=== PATIENT | male | born 1985 | race Caucasian/White ===

== ENCOUNTER → 2016-06-17 | Outpatient (CLI) | payer SELFPAY ==
[2016-04-14 02:05] VITALS: BP 174/82
[2016-06-17 16:26] LABS: BASOPHILS % (AUTO) 0.3 % (0.2-1.0); EOSINOPHILS # (AUTO) 0.1 x10^3/uL (0.0-0.2); EOSINOPHILS % (AUTO) 0.7 % (0.9-2.9); HEMATOCRIT 29.6 % (42.0-54.0); HEMOGLOBIN 9.4 g/dL (13.5-18.0); LYMPHOCYTES # (AUTO) 0.7 X10^3/uL (1.3-2.9); LYMPHOCYTES % (AUTO) 4.4 % (21.0-51.0); MEAN CORPUSCULAR HEMOGLOBIN 24.1 pg (27.0-34.0); MEAN CORPUSCULAR HGB CONC 31.8 g/dL (33.0-35.0); MEAN CORPUSCULAR VOLUME 75.8 fL (80.0-100.0); MEAN PLATELET VOLUME 8.3 fL (7.4-11.0); MONOCYTES % (AUTO) 6.3 % (0.0-13.0); NEUTROPHILS # (AUTO) 13.6 x10^3/uL (2.2-4.8); NEUTROPHILS % (AUTO) 88.3 % (42.0-75.0); PLATELET COUNT 505 X10^3/uL (150.0-450.0); RED BLOOD COUNT 3.91 X10^6/uL (4.7-6.0); RED CELL DISTRIBUTION WIDTH 16.5 % (11.6-16.5); WHITE BLOOD COUNT 15.4 X10^3/uL (3.6-10.0)
[2016-06-17 16:30] LABS: ALANINE AMINOTRANSFERASE 10 Units/L (12-78); ALBUMIN 2.9 g/dL (3.4-5.0); ALKALINE PHOSPHATASE 55 Units/L (46-116); AMYLASE 119 Units/L (25-115); ASPARTATE AMINO TRANSFERASE 15 Units/L (15-37); BLOOD UREA NITROGEN 12 mg/dL (7-18); CARBON DIOXIDE 27.2 mmol/L (21-32); CHLORIDE 99 mmol/L (98-107); CHOL/HDL RATIO 11.7 (0.0-5.0); CHOLESTEROL 187 mg/dL (0-200); COR NA(FOR HYPERGLY) 139 mmol/L (136-145); CREATININE 1.54 mg/dL (0.70-1.30); GLUCOSE 146 mg/dL (65-99); HDL CHOLESTEROL 16 mg/dL (40-60); LIPASE 338 Units/L (73-393); SODIUM 138 mmol/L (136-145); TOTAL PROTEIN 7.8 g/dL (6.4-8.2); TRIGLYCERIDES 303 mg/dL (0-150); eGFR BLACK RACES > 60 (>60); eGFR NON BLACK RACES 56 (>60)
[2016-06-17 17:09] LABS: ANISOCYTOSIS SLIGHT; MICROCYTOSIS SLIGHT; PLATELET MORPHOLOGY COMMENT NORMAL (NORMAL)
== END ==
LOC: LAB 15:44
PROVIDERS: ATTEND Internal Medicine
DX: K85.80 Other acute pancreatitis without necrosis or infection (principal)
CPT/HCPCS: 36415; 80048; 80061; 80076; 82150; 83690; 85025

== ENCOUNTER 2016-07-01 17:11 | Emergency (ER) | payer SELFPAY ==
[2016-07-01 17:17] VITALS: BMI 27.1
[2016-07-01] MEDS ORDERED: NS 1000 ML 1,000 ML ONE ×3 (17:19→19:01)
[2016-07-01] MEDS ORDERED: NS 1000 ML 1,000 ML IV ONE ×3 (17:26→19:09)
[2016-07-01] MEDS ORDERED: ZOFRAN INJ 4 MG VIAL ONE (17:28)
[2016-07-01] MEDS ORDERED: ZOFRAN INJ 4 MG VIAL IVP ONE (17:28)
[2016-07-01 17:56] LABS: BASOPHILS # (AUTO) 0.2 X10^3/uL (0.0-0.1); EOSINOPHILS # (AUTO) 0.1 x10^3/uL (0.0-0.2); EOSINOPHILS % (AUTO) 0.9 % (0.9-2.9); HEMATOCRIT 26.9 % (42.0-54.0); HEMOGLOBIN 8.3 g/dL (13.5-18.0); LYMPHOCYTES % (AUTO) 6.1 % (21.0-51.0); MEAN CORPUSCULAR VOLUME 74.1 fL (80.0-100.0); MEAN PLATELET VOLUME 8.7 fL (7.4-11.0); MONOCYTES # (AUTO) 0.8 x10^3/uL (0.3-0.8); MONOCYTES % (AUTO) 4.9 % (0.0-13.0); NEUTROPHILS # (AUTO) 14.4 x10^3/uL (2.2-4.8); NEUTROPHILS % (AUTO) 87.1 % (42.0-75.0); PLATELET COUNT 565 X10^3/uL (150.0-450.0); RED BLOOD COUNT 3.62 X10^6/uL (4.7-6.0); RED CELL DISTRIBUTION WIDTH 17.4 % (11.6-16.5); WHITE BLOOD COUNT 16.5 X10^3/uL (3.6-10.0)
[2016-07-01 18:07] LABS: ALANINE AMINOTRANSFERASE 12 Units/L (12-78); ALBUMIN 2.4 g/dL (3.4-5.0); ALKALINE PHOSPHATASE 62 Units/L (46-116); AMYLASE 110 Units/L (25-115); ASPARTATE AMINO TRANSFERASE 28 Units/L (15-37); BLOOD UREA NITROGEN 13 mg/dL (7-18); CALCIUM 9.2 mg/dL (8.5-10.1); CARBON DIOXIDE 26.7 mmol/L (21-32); CHLORIDE 96 mmol/L (98-107); COR CA(FOR HYPOALB) 10.5 mg/dL (8.5-10.1); COR NA(FOR HYPERGLY) 138 mmol/L (136-145); CREATININE 1.44 mg/dL (0.70-1.30); GLUCOSE 168 mg/dL (65-99); LIPASE 412 Units/L (73-393); SODIUM 136 mmol/L (136-145); TOTAL PROTEIN 7.3 g/dL (6.4-8.2); eGFR BLACK RACES > 60 (>60); eGFR NON BLACK RACES > 60 (>60)
[2016-07-01 18:21] LABS: HYPOCHROMASIA 1+; MICROCYTOSIS 1+; PLATELET MORPHOLOGY COMMENT NORMAL (NORMAL); POIKILOCYTOSIS 1+
--- NOTE | 2016-07-01 19:02 | RAD ---
Chest, one view Indication: Chest pain Comparison: 06/20/2015 Findings: The cardiac silhouette is unremarkable. The lungs are clear, without focal infiltrates, la rge effusion, or pneumothorax. The bony thorax is unremarkable. Impression: No acute cardiopulmonary disease. Reported By:
--- NOTE | 2016-07-01 20:00 | DR.GENAD ---
HPI - PCP Primary Care Physician: bob - HPI Comment HPI Comment: SEVERE PACREATITIS APRIL THIS YEAR STAY IN [facility] FOR WEEKS. HAVE DRAIN IN COMMON BILE DUCT. HAVE GALL STONE ALSO. WORKING WITH DR. HURTADO, GI AND DR. PORTILLO SURGEON. PATIENT IS CURRENTLY RUNNING FEVER AND VOMITING. HE GOT VERY WEAK TONIGHT. HYPOTENSIVE IN ED. - Complaint/Symptoms Chief Complaint Doctors Comments: INRESING WAKNESS SEVERAL DAYS, N/V TODAY AND INCRESING ABDOMINA PAIN. Chief Complaint:: patient has a hx of pancritis, and was shipped to [facility] [place]. he started hurting and vomiting this morning. - Nurses notes reviewed Nurses Notes Review: Yes - Source History Provided: Patient, Family Member - Mode of Arrival Mode of Arrival: Ambulatory - Timing Onset of Chief Complaint: 07/01/16 Came on: Gradually - Duration Duration: Constant Duration: Days - Severity Severity: Moderate PMH - PMH Past Medical History: Yes Past Medical History: Diabetes, GERD Past Surgical History: Yes Surgical History: Abdominal Surgery - Family History History of Family Medical Conditions: Yes Family Medical History: Diabetes Mellitus, Cancer, [place], Coronary Artery Disease, Heart Failure, Sudden Cardiac , Hypertension - Social History Does patient currently use any type of tobacco product: No Have you used tobacco products in the last 12 months: No Does any household member use tobacco: No Alcohol Use: None Do you use any recreational Drugs:: No Lives With: Family Lives Where: Home - infectious screening In the last 2 months have you had wt loss of >10#?: NO Have you had fever, night sweats or hemotysis?: No Have you traveled outside the country in the last 6 months?: No Isolation: Standard ROS - Review of Systems Constitutional: Weakness, Fatigue, Loss of Appetite. negative: Chills, Fever Eyes: No Symptoms Reported. negative: Eye Pain, Discharge ENTM: negative: Ear Pain, Nose Discharge, Nose Congestion, Throat Pain Respiratoy: Non-Productive Cough, Short of Breath, Wheezing. negative: Productive Cough, Hemoptysis Cardiovascular: Chest Pain, Edema (TRACE), Palpitations Gastrointestinal/Abdominal: Abdominal Pain, Nausea, Vomiting Genitourinary: Other (DECREASE URINE OUTPUT.). negative: Dysuria, Frequency, Hematuria Neurological: Weakness, Dizziness Musculoskeletal: Muscle Pain Integumentary: Change in Color, Dryness, Other (DRAINING FROM LT CHEST SITE OF RECENT CHEST TUBE.) Hematologic/Lymphatic: Anemia Endocrine: No Symptoms Reported All Other Systems: Reviewed and Negative PE - Vital Signs Vitals: Temperature 100.0 F Pulse Rate [Left Brachial] 72 Pulse Rate 115 Respiratory Rate 16 Blood Pressure [Left Arm] 121/68 Blood Pressure [Right Arm] 174/82 Blood Pressure 83/68 O2 Sat by Pulse Oximetry 98 - General Limitations: No Limitations General Appearance: Alert - Head Head Exam: Normal Inspection - Eyes Eye exam: Normal Appearance - ENT ENT Exam: Normal External Ear Exam External Ear Exam: Normal External Inspection TM/Canal Exam: Bilateral Normal Nose Exam: Normal Nose Exam Mouth Exam: Normal Inspection Throat Exam: Normal Inspection - Neck Neck Exam: Normal Inspection - Chest Chest Inspection: Symmetric Chest Wall Rise - Respiratory Respiratory Exam: Normal Lung Sounds Bilat Respiratory Exam: Bilateral Clear to Auscultation - Cardiovascular Cardiovascular Exam: Regular Rate, Normal Rhythm, Normal Heart Sounds - Abdominal Exam Abdominal Exam: Normal Bowel Sounds, Soft, Tenderness Abdominal Tenderness: Diffuse, Moderate - Extremities Extremities Exam: Edema (TRACE) - Back Back Exam: Normal Inspection - Neurologic Neurological Exam: Alert, Oriented X3 - Psychiatric Psychiatric Exam: Anxious - Skin Skin Exam: Dry MDM - Additional Information Additional Information Obtained From: Family - Differential Diagnosis Differential Diagnosis: HYPOTENSION, SEPSIS, PANCREATITIS, CHOLECYSTITIS, UTI Course - Treatment Treatment: HYPOTENSION RESPONDED TO FLUID RESUSCITATION. CT DONE AFTER FLUID RESUSCITATION. PATIENT WANTED TO GO TO [place]. HE FELT BETTER AND SIGN OUT AMA. - Education/Counseling Education/Counseling: Patient, Family, Education Educated On: Treatment, Diagnosis, Needs for Follow Up ROR - Labs Reviewed Laboratory Results Reviewed?: Yes Result Diagrams: 07/01/16 17:38 07/01/16 17:38 Laboratory: 07/01/16 17:45 Abdomen Gram Stain - Final WBC 16.5 X10^3/uL (3.6-10.0) H 07/01/16 17:38 RBC 3.62 X10^6/uL (4.7-6.0) L 07/01/16 17:38 Hgb 8.3 g/dL (13.5-18.0) L 07/01/16 17:38 Hct 26.9 % (42.0-54.0) L 07/01/16 17:38 MCV 74.1 fL (80.0-100.0) L 07/01/16 17:38 MCH 23.0 pg (27.0-34.0) L 07/01/16 17:38 MCHC 31.0 g/dL (33.0-35.0) L 07/01/16 17:38 RDW 17.4 % (11.6-16.5) H 07/01/16 17:38 Plt Count 565 X10^3/uL (150.0-450.0) H 07/01/16 17:38 Plt Count Comment Adequate (ADEQUATE) 07/01/16 17:38 MPV 8.7 fL (7.4-11.0) 07/01/16 17:38 Neut % 87.1 % (42.0-75.0) H 07/01/16 17: Lymph % 6.1 % (21.0-51.0) L 07/01/16 17:38 [place] % 4.9 % (0.0-13.0) 07/01/16 17:38 Eos % 0.9 % (0.9-2.9) 07/01/16 17:38 Baso % 1.0 % (0.2-1.0) 07/01/16 17:38 Neut # 14.4 x10^3/uL (2.2-4.8) H 07/01/16 17:38 Lymph # 1.0 X10^3/uL (1.3-2.9) L 07/01/16 17:38 [place] # 0.8 x10^3/uL (0.3-0.8) 07/01/16 17:38 Eos # 0.1 x10^3/uL (0.0-0.2) 07/01/16 17:38 Baso # 0.2 X10^3/uL (0.0-0.1) H 07/01/16 17:38 Absolute Nucleated RBC 0.0 /100WBC 07/01/16 17:38 Plt Morphology Comment Normal (NORMAL) 07/01/16 17:38 RBC Morphology Abnormal (NORMAL) 07/01/16 17:38 Hypochromasia 1+ A 07/01/16 17:38 Poikilocytosis 1+ A 07/01/16 17:38 Microcytosis 1+ A 07/01/16 17:38 Sodium 136 mmol/L (136-145) 07/01/16 17:38 Corrected Sodium 138 mmol/L (136-145) 07/01/16 17:38 Potassium 3.1 mmol/L (3.5-5.1) L 07/01/16 17:38 Chloride 96 mmol/L (98-107) L 07/01/16 17:38 Carbon Dioxide 26.7 mmol/L (21-32) 07/01/16 17:38 BUN 13 mg/dL (7-18) 07/01/16 17:38 Creatinine 1.44 mg/dL (0.70-1.30) H 07/01/16 17:38 Est GFR (MDRD) Af Amer > 60 (>60) 07/01/16 17:38 Est GFR (MDRD) Non-Af > 60 (>60) 07/01/16 17:38 Glucose 168 mg/dL (65-99) H 07/01/16 17:38 Lactic Acid 2.0 mmol/L (0.4-2.0) 07/01/16 17:38 Calcium 9.2 mg/dL (8.5-10.1) 07/01/16 17:38 Corrected Calcium 10.5 mg/dL (8.5-10.1) H 07/01/16 17:38 Total Bilirubin 0.60 mg/dL (0.2-1.0) 07/01/16 17:38 AST 28 Units/L (15-37) 07/01/16 17:38 ALT 12 Units/L (12-78) 07/01/16 17:38 Alkaline Phosphatase 62 Units/L (46-116) 07/01/16 17:38 C-Reactive Protein 144.30 mg/L (0-3.0) H 07/01/16 17:38 Total Protein 7.3 g/dL (6.4-8.2) 07/01/16 17:38 Albumin 2.4 g/dL (3.4-5.0) L 07/01/16 17:38 Globulin 4.9 g/dL (2.5-4.5) H 07/01/16 17:38 Albumin/Globulin Ratio 0.5 Ratio (1.1-2.1) L 07/01/16 17:38 Amylase 110 Units/L (25-115) 07/01/16 17:38 Lipase 412 Units/L (73-393) H 07/01/16 17:38 Specimen Type Clean catch urine 07/01/16 20:52 Urine Color Yellow (YELLOW) 07/01/16 20:52 Urine Appearance Hazy (CLEAR) 07/01/16 20:52 Urine pH 6.5 (5.0 - 8.0) 07/01/16 20:52 Ur Specific [place] 1.010 (1.000-1.030) 07/01/16 20:52 Urine Protein 3+ (NEGATIVE) 07/01/16 20:52 Urine Glucose (UA) Negative (NEGATIVE) 07/01/16 20:52 Urine Ketones 2+ (NEGATIVE) 07/01/16 20:52 Urine Occult Blood 1+ (NEGATIVE) 07/01/16 20:52 Urine Nitrite Negative (NEGATIVE) 07/01/16 20:52 Urine Bilirubin 1+ (NEGATIVE) 07/01/16 20:52 Urine Urobilinogen 2+ (NORMAL) 07/01/16 20:52 Ur Leukocyte Esterase 1+ (NEGATIVE) 07/01/16 20:52 Urine RBC 0-3 /HPF (NEGATIVE) 07/01/16 20:52 Urine WBC 6-10 /HPF (NEGATIVE) 07/01/16 20:52 Ur Squamous Epith Cells Negative /HPF (NEGATIVE) 07/01/16 20:52 Urine Bacteria Trace /HPF (NEGATIVE) 07/01/16 20:52 Urine Mucus Few /HPF (NEGATIVE) 07/01/16 20:52 Ur Culture Indicated? No/not indicated 07/01/16 20:52 - XRAY XRAY Interpreted by: Radiologist XRAY Findings: REPORT DISCUSS WITH PATIENT. - Diagnosis Discharge Problem: Pancreatic pseudocyst Pancreatitis Qualifiers: Chronicity: acute Pancreatitis type: unspecified pancreatitis type Acute pancreatitis complication: unspecified Qualified Code(s): K85.90 - Acute pancreatitis without necrosis or infection, unspecified Hypotension Qualifiers: Hypotension type: other hypotension type Qualified Code(s): I95.89 - Other hypotension - Discharge Plan Disposition: 07 AGAINST MEDICAL ADVICE Condition: Stable - Follow ups/Referrals Follow ups/Referrals: Viktor SOLANO [Primary Care Provider] - 3 days - Instructions Instructions: Acute Pancreatitis, [id number]
--- NOTE | 2016-07-01 20:49 | CT ---
STUDY: CT ABDOMEN AND PELVIS WITHOUT IV AND ORAL CONTRAST HISTORY: Abdominal pain, nausea, vomiting. Comparison: April 13, 2016. Technique: Multiple axial images of the abdomen and pelvis were obtained from the lung bases to the pubic symphysis without the administration of IV contrast. Findings: The visualized portions of the lung bases are unremarkable. CT abdomen: Since a prior examination there appears to have been placement of a biliary stent. There is blurring of the margins of the pancreas and peripancreatic inflammatory stranding. There is a lo w attenuation fluid collection within the body and tail of pancreas which measures approximately 10. 2 x 5.7 cm, most consistent with a pancreatic pseudocyst. Several locules of air are identified with in the pseudocyst. There appears to be some thickening of the gastric barrios immediately adjacent to the pseudocyst. The liver is normal appearance. The spleen appears enlarged. There is a small amount fluid posterior medial to the spleen. Both adrenal glands are normal in appearance. Both kidneys cruz ve a normal nonenhanced appearance. There is no evidence of hydronephrosis, nephrolithiasis, or julio ureteric fat stranding. Multiple nodules are identified throughout the peritoneal cavity, left mostl y along the mesentery and left fercho abdomen. There appears to be some thickening of the barrios of the stomach. The stomach is incompletely distend ed. The small bowel is normal in appearance, without evidence of bowel wall thickening or small gayla l obstruction. The terminal ileum and cecum are normal. The appendix is normal in appearance. Ther e is no evidence of periappendiceal fat stranding. The ascending, transverse and descending colon ar e within normal limits. CT pelvis: The sigmoid colon and the rectum are within normal limits. The urinary bladder is normal. No abnormal fluid collections are identified in the pelvis. There is no evidence of acute osseous abnormality. IMPRESSION: 1. Findings most consistent with acute pancreatitis with associated pancreatic pseudocyst. 2. Mild splenomegaly. Reported By:
[2016-07-01] MEDS ORDERED: NS 100 ML IV 100 ML IV ONE (20:53)
[2016-07-01] MEDS ORDERED: ZOSYN VIAL 3.375 GM IV ONE (20:54)
[2016-07-01 20:57] LABS: BILIRUBIN,URINE 1+ (NEGATIVE); BLOOD/HEMOGLOBIN,URINE 1+ (NEGATIVE); GLUCOSE, URINE NEGATIVE (NEGATIVE); KETONES,URINE 2+ (NEGATIVE); LEUKOCYTE ESTERASE ,URINE 1+ (NEGATIVE); NITRITES,URINE NEGATIVE (NEGATIVE); PH,URINE 6.5 (5.0 - 8.0); PROTEIN,URINE 3+ (NEGATIVE); UROBILINOGEN,URINE 2+ (NORMAL)
[2016-07-01 21:04] LABS: APPEARANCE,URINE HAZY (CLEAR); BACTERIA,URINE TRACE /HPF (NEGATIVE); COLOR,URINE YELLOW (YELLOW); MUCUS,URINE FEW /HPF (NEGATIVE); RBC,URINE 0-3 /HPF (NEGATIVE); SQUAMOUS EPITHELIAL CELL,UR NEGATIVE /HPF (NEGATIVE)
[2016-07-01] MEDS ORDERED: ZOSYN VIAL 3.375 GM 1.5 GM in NS 100 ML IV + SPIKE MINIBAG* 100 ML IV SCH (22:00)
[2016-07-01 22:15] VITALS: BP 121/68
== END 2016-07-01 22:25 | disposition left against medical advice (07) ==
LOC: ER 17:28
DX: K85.90 Acute pancreatitis without necrosis or infection, unspecified (principal); K86.3 Pseudocyst of pancreas; I95.89 Other hypotension
CPT/HCPCS: 36415; 71010; 74176; 80053; 81001; 82150; 83605; 83690; 85025; 86140; 87040; 87070; 87075; 87205; 93005; 93010; 96365; 96367; 96374; 96375; 99283; A4222; J2405; J2543

== ENCOUNTER → 2016-07-08 | Outpatient (CLI) | payer SELFPAY ==
[2016-07-01 22:15] VITALS: BP 121/68
--- NOTE | 2016-07-08 14:04 | RAD ---
HISTORY: Abdominal pain Study: Acute abdominal series Comparison: July 01, 2016 Findings: The trachea is midline. The cardiac silhouette is unremarkable. The lungs are clear without focal infiltrate or effusion. The bony thorax is unremarkable. Flat plate and upright evaluation of the abdomen demonstrates a normal bowel gas pattern. No pneumop eritoneum is identified. There is a biliary stent present.. No pathological soft tissue mass or huy cification can be observed. The bony structures are grossly intact. IMPRESSION: 1. No acute cardiopulmonary disease. 2. No evidence for acute abdominal pathology identified. Reported By:
== END ==
LOC: RAD 13:24
PROVIDERS: ATTEND Internal Medicine Gastroenterology
DX: R10.84 Generalized abdominal pain (principal)
CPT/HCPCS: 74022

== ENCOUNTER 2016-07-12 18:03 | Emergency (ER) | payer SELFPAY ==
[2016-07-12] MEDS ORDERED: NS 1000 ML 1,000 ML IV ONE ×3 (18:15→19:35)
[2016-07-12] MEDS ORDERED: NS 1000 ML 1,000 ML ONE ×3 (18:15→20:53)
[2016-07-12 18:22] VITALS: BMI 24.3
--- NOTE | 2016-07-12 19:06 | RAD ---
HISTORY: Low blood pressure. Study: Chest one view Comparison: July 08, 2016. Findings: The trachea is midline. The cardiac silhouette is unremarkable. There are low lung volumes. The latisha gs are clear without focal infiltrate or effusion. The bony thorax is unremarkable. IMPRESSION: 1. No acute cardiopulmonary disease. Reported By:
[2016-07-12 19:33] LABS: BASOPHILS # (AUTO) 0.1 X10^3/uL (0.0-0.1); BASOPHILS % (AUTO) 0.2 % (0.2-1.0); EOSINOPHILS % (AUTO) 0.1 % (0.9-2.9); HEMATOCRIT 25.6 % (42.0-54.0); HEMOGLOBIN 7.7 g/dL (13.5-18.0); LYMPHOCYTES # (AUTO) 0.4 X10^3/uL (1.3-2.9); LYMPHOCYTES % (AUTO) 1.5 % (21.0-51.0); MEAN CORPUSCULAR HEMOGLOBIN 22.9 pg (27.0-34.0); MEAN CORPUSCULAR HGB CONC 30.2 g/dL (33.0-35.0); MEAN CORPUSCULAR VOLUME 75.8 fL (80.0-100.0); MEAN PLATELET VOLUME 8.9 fL (7.4-11.0); MONOCYTES # (AUTO) 0.6 x10^3/uL (0.3-0.8); MONOCYTES % (AUTO) 2.3 % (0.0-13.0); NEUTROPHILS # (AUTO) 24.5 x10^3/uL (2.2-4.8); NEUTROPHILS % (AUTO) 95.9 % (42.0-75.0); PLATELET COUNT 389 X10^3/uL (150.0-450.0); RED BLOOD COUNT 3.38 X10^6/uL (4.7-6.0); RED CELL DISTRIBUTION WIDTH 17.8 % (11.6-16.5)
[2016-07-12 19:35] LABS: WHITE BLOOD COUNT 25.6 X10^3/uL (3.6-10.0)
[2016-07-12 19:38] LABS: B-TYPE NATRIURETIC PEPTIDE 25.9 pg/mL (0-79)
[2016-07-12 19:40] LABS: ALANINE AMINOTRANSFERASE 11 Units/L (12-78); ALBUMIN 1.6 g/dL (3.4-5.0); ALKALINE PHOSPHATASE 97 Units/L (46-116); AMYLASE 90 Units/L (25-115); ANISOCYTOSIS SLIGHT; ASPARTATE AMINO TRANSFERASE 36 Units/L (15-37); BAND NEUTROPHILS % 16 % (0-10); BLOOD UREA NITROGEN 14 mg/dL (7-18); CALCIUM 7.8 mg/dL (8.5-10.1); CHLORIDE 99 mmol/L (98-107); CKMB % 0.4 % (<4); COR CA(FOR HYPOALB) 9.7 mg/dL (8.5-10.1); COR NA(FOR HYPERGLY) 137 mmol/L (136-145); CREATINE KINASE 238 Units/L (39-308); CREATINE KINASE MB < 1.0 ng/mL (0-4.0); CREATININE 2.08 mg/dL (0.70-1.30); GLUCOSE 113 mg/dL (65-99); HYPOCHROMASIA 1+; LIPASE 266 Units/L (73-393); PLATELET MORPHOLOGY COMMENT NORMAL (NORMAL); SODIUM 137 mmol/L (136-145); TOTAL PROTEIN 5.2 g/dL (6.4-8.2); TROPONIN I < 0.02 ng/mL (0-1.5); eGFR BLACK RACES 48 (>60); eGFR NON BLACK RACES 40 (>60)
[2016-07-12 19:41] LABS: MICROCYTOSIS SLIGHT
[2016-07-12 19:44] LABS: CARBON DIOXIDE 13.8 mmol/L (21-32)
[2016-07-12] MEDS ORDERED: DOPAMINE IV PREMIX 400 MG 400 MG/250 ML BAG IV ONE (19:48)
[2016-07-12] MEDS ORDERED: D5W 250 ML IV 250 ML IV ONE (19:53)
[2016-07-12] MEDS ORDERED: LEVOPHED INJ ONE (19:53)
[2016-07-12] MEDS ORDERED: LEVOPHED INJ 8 MG in D5W 250 ML IV 242 ML IV PRN (19:58)
[2016-07-12] MEDS ORDERED: NS + KCL 20 MEQ/L 1,000 ML IV ONE (20:12)
[2016-07-12] MEDS ORDERED: ROCEPHIN VIAL 1 GM 1 GM in NS 50 ML IV + SPIKE MINIBAG* 50 ML IV ONE (20:23)
[2016-07-12] MEDS ORDERED: ROCEPHIN VIAL 1 GM ONE (20:49)
[2016-07-12] MEDS ORDERED: NS 50 ML IV + SPIKE MINIBAG* 50 ML IV ONE (20:50)
[2016-07-12] MEDS ORDERED: NS + KCL 20 MEQ/L 1,000 ML IV SCH (21:00)
[2016-07-12] MEDS ORDERED: VANCOMYCIN HCL 1 GM VIAL IV ONE (21:47)
[2016-07-12] MEDS ORDERED: LEVAQUIN PREMIX IV 750 MG 750 MG/150 ML BAG IV ONE (21:54)
[2016-07-12] MEDS ORDERED: VANCOMYCIN 1 GM PREMIX (ADDVANTAGE) 250 ML IV ONE (21:55)
[2016-07-12] MEDS ORDERED: ZOSYN VIAL 3.375 GM 1.5 GM in NS 100 ML IV + SPIKE MINIBAG* 100 ML IV SCH (22:00)
--- NOTE | 2016-07-12 22:05 | CT ---
STUDY: CT ABDOMEN WITHOUT IV AND ORAL CONTRAST HISTORY: Hypotension. Abdominal pains. Recent pancreas surgery. Comparison: CT abdomen and pelvis from April 13, 2016. Technique: Multiple axial images of the abdomen were obtained from the lung bases to the iliac douglas ts without the administration of IV contrast. Findings: There is prominence of the central bronchial pulmonary markings in both lower lobes, most concerning for bronchitis. There is beam hardening and streak artifact across the abdomen. CT abdomen: The liver, gallbladder, spleen, kidneys, and adrenal glands are normal in appearance. Mu ltiple mesenteric lymph nodes are identified. There appears to be a biliary stent in place extending from the common bile duct into the pancreatic head and duodenum. There is abnormal inflammatory str anding around the pancreas. There is an abnormal complex fluid collection centered at the tail of th e pancreas which measures approximately 7.4 (AP) x 10.5 (TR) x 7.7 (SI) cm. The stomach is normal in appearance. Visualized portions of the small bowel and colon are unremarkab le. There is no evidence of bowel obstruction. There is no evidence of acute osseous abnormality. IMPRESSION: 1. Postsurgical change status post placement of biliary stent. 2. Findings most concerning for pancreatitis with pancreatic pseudocyst centered in the pancreatic tail. 3. Recommend followup CT examination as clinically warranted performed with oral and IV contrast. Reported By:
--- NOTE | 2016-07-12 22:48 | DR.GENAD ---
HPI - PCP Primary Care Physician: [email or web address] - HPI Comment HPI Comment: PATIENT HERE VIA EMS WITH SBP OF 50. PATIENT IS TACHYCARDIC, DIAPHORETIC AND WEAK. HE IS COMPLAINING OF ABDOMINAL AND CHEST PAIN. HAD PACREATITIS IN APRIL. ERCP DONE. HE ALSO HAVE INDWELLING GALL STONE. ABDOMINAL PAIN SINCE DISCHARGE FROM HOSPITAL. GOT WORSE THIS WEEK. ALSO STARTED RUNNING FEVER THE SAME TIME. HE JUST DONT FEEL GOOD TODAY. - Complaint/Symptoms Chief Complaint Doctors Comments: HYPOTENSION, WEAKNESS, DIAPHORESIS. Chief Complaint:: [facility] BRINGS IN PT. WITH A C/O OF HYPOTENSION. 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 UPON ARRIVAL, PT. IS ALERT AND ORIENTED BUT PALE, DIAPHORETIC, TACHYCARDIC, AND TACHYPNEIC. NO RADIAL PULSES WERE PALPABLE UPON ARRIVAL NOR WAS A BLOOD PRESSURE. PT. WAS PLACED IN [place] POSITION WITH 2 NS BOLUSES INFUSING. PT. C/O ABDOMINAL PAIN AND NAUSEA. - Nurses notes reviewed Nurses Notes Review: Yes - Source History Provided: Patient, Family Member, EMS - Mode of Arrival Mode of Arrival: EMS - Timing Onset of Chief Complaint: 07/12/16 Came on: Gradually - Duration Duration: Constant Duration: Days - Severity Severity: Moderate PMH - PMH Past Medical History: Yes Past Medical History: Diabetes, GERD Past Surgical History: Yes Surgical History: Abdominal Surgery Past Surgical History Comment: HEAD OF PANCREAS WAS REMOVED - Family History History of Family Medical Conditions: Yes Family Medical History: Diabetes Mellitus, Cancer, [place], Coronary Artery Disease, Heart Failure, Sudden Cardiac , Hypertension - Social History Does patient currently use any type of tobacco product: No Have you used tobacco products in the last 12 months: No Type of Tobacco Use: None Does any household member use tobacco: No Alcohol Use: None Do you use any recreational Drugs:: No Lives With: Family Lives Where: Home - infectious screening In the last 2 months have you had wt loss of >10#?: NO Have you had fever, night sweats or hemotysis?: No Have you traveled outside the country in the last 6 months?: No Isolation: Standard ROS - Review of Systems Constitutional: Chills, Diaphoresis, Fever, Malaise, Weakness, Fatigue, Loss of Appetite Eyes: No Symptoms Reported. negative: Eye Pain, Discharge ENTM: No Symptoms Reported. negative: Ear Pain, Nose Discharge, Nose Congestion , Throat Pain Respiratoy: Productive Cough, Short of Breath, Wheezing. negative: Hemoptysis Cardiovascular: Chest Pain, Palpitations Gastrointestinal/Abdominal: Abdominal Pain, Nausea. negative: Constipation, Diarrhea Genitourinary: No Symptoms Reported. negative: Dysuria, Frequency, Hematuria Neurological: Anxiety, Headache, Weakness, Dizziness Musculoskeletal: Back Pain, Muscle Pain Integumentary: Change in Color, Dryness Hematologic/Lymphatic: Anemia Endocrine: Flushing Psychiatric: Anxiety All Other Systems: Reviewed and Negative PE - Vital Signs Vitals: Temperature 98.9 F Pulse Rate [Apical] 123 Pulse Rate 142 Respiratory Rate 16 Blood Pressure [Left Arm] 106/57 Blood Pressure [Right Arm] 120/54 Blood Pressure 109/49 O2 Sat by Pulse Oximetry 100 - General Limitations: No Limitations General Appearance: Alert, In Distress - Head Head Exam: Normal Inspection - Eyes Eye exam: Normal Appearance. negative: Scleral Icterus, Conjunctival Injection - ENT ENT Exam: Normal Oropharynx, Normal External Ear Exam, TM's Normal Bilaterally External Ear Exam: Normal External Inspection TM/Canal Exam: Bilateral Normal Nose Exam: Normal Nose Exam Mouth Exam: Normal Inspection Throat Exam: Normal Inspection - Neck Neck Exam: Trachea Midline. negative: Tenderness, Meningismus - Chest Chest Inspection: Symmetric Chest Wall Rise - Respiratory Respiratory Exam: Respiratory Distress. negative: Chest Wall Tenderness Respiratory Exam: Bilateral Rhonchi, Upper Rhonchi, Lower Rhonchi - Cardiovascular Cardiovascular Exam: Normal Rhythm, Tachycardia, Normal Heart Sounds - Abdominal Exam Abdominal Exam: Normal Bowel Sounds, Soft, Tenderness Abdominal Tenderness: Diffuse, Moderate - Extremities Extremities Exam: Normal Inspection - Back Back Exam: Paraspinal Tenderness - Neurologic Neurological Exam: Alert, Oriented X3, CN II-XII Intact, Reflexes Normal. negative: Motor Sensory Deficit - Psychiatric Psychiatric Exam: Anxious - Skin Skin Exam: Dry MDM - Additional Information Additional Information Obtained From: Family - Differential Diagnosis Differential Diagnosis: SEPSIS, HYPOTENSION, ABDOMINAL PAIN, RECENT PANCREATITIS Course - Treatment Treatment: SEE ORDERS, LEFT FEMORAL LINE PLACE IN ED BY DR. GRAVES, SURGEON. - Consultation Consultation Comments: DISCUSS PATIENT WITH ED JEANA GAO, TYE PATIENT DISCUSS WITH HUSPITALIST. DISCUSS PATIRNT WITH [employer] [facility] AT [facility]. HE ACCEPTED PATIENT FOR TRANSFER. SURGERY CONSULT FOR CENTRAL LINE PLACEMENT. FEMORAL LINE PLACE IN ED SURGEON. - Education/Counseling Education/Counseling: Patient, Family, Education Educated On: Treatment, Diagnosis ROR - Labs Reviewed Laboratory Results Reviewed?: Yes Result Diagrams: 07/12/16 19:10 07/12/16 19:10 Laboratory: WBC 25.6 X10^3/uL (3.6-10.0) H* 07/12/16 19:10 RBC 3.38 X10^6/uL (4.7-6.0) L 07/12/16 19:10 Hgb 7.7 g/dL (13.5-18.0) L 07/12/16 19:10 Hct 25.6 % (42.0-54.0) L 07/12/16 19:10 MCV 75.8 fL (80.0-100.0) L 07/12/16 19:10 MCH 22.9 pg (27.0-34.0) L 07/12/16 19:10 MCHC 30.2 g/dL (33.0-35.0) L 07/12/16 19:10 RDW 17.8 % (11.6-16.5) H 07/12/16 19:10 Plt Count 389 X10^3/uL (150.0-450.0) 07/12/16 19:10 Plt Count Comment Adequate (ADEQUATE) 07/12/16 19:10 MPV 8.9 fL (7.4-11.0) 07/12/16 19:10 Neut % 95.9 % (42.0-75.0) H 07/12/16 19:10 Lymph % 1.5 % (21.0-51.0) L 07/12/16 19:10 [place] % 2.3 % (0.0-13.0) 07/12/16 19:10 Eos % 0.1 % (0.9-2.9) L 07/12/16 19:10 Baso % 0.2 % (0.2-1.0) 07/12/16 19:10 Neut # 24.5 x10^3/uL (2.2-4.8) H 07/12/16 19:10 Lymph # 0.4 X10^3/uL (1.3-2.9) L 07/12/16 19:10 [place] # 0.6 x10^3/uL (0.3-0.8) 07/12/16 19:10 Eos # 0.0 x10^3/uL (0.0-0.2) 07/12/16 19:10 Baso # 0.1 X10^3/uL (0.0-0.1) 07/12/16 19:10 Absolute Nucleated RBC 0.1 /100WBC 07/12/16 19:10 Total Counted 100 07/12/16 19:10 Neutrophils % (Manual) 78 % (39-76) H 07/12/16 19:10 Band Neutrophils % 16 % (0-10) H 07/12/16 19:10 Lymphocytes % (Manual) 5 % (13-43) L 07/12/16 19:10 Monocytes % (Manual) 1 % (4-9) L 07/12/16 19:10 Plt Morphology Comment Normal (NORMAL) 07/12/16 19:10 RBC Morphology Abnormal (NORMAL) 07/12/16 19:10 Hypochromasia 1+ A 07/12/16 19:10 Anisocytosis Slight A 07/12/16 19:10 Microcytosis Slight A 07/12/16 19:10 Sample Site L rad 07/12/16 22:08 ABG pH 7.340 (7.35-7.45) L 07/12/16 22:08 ABG pCO2 24.0 mmHg (35.0-45.0) L 07/12/16 22:08 ABG pO2 80.0 mmHg (80.0-100.0) 07/12/16 22:08 ABG HCO3 12.9 mmol/L (22-26) L* 07/12/16 22:08 ABG O2 Saturation 95.0 % (90-100) 07/12/16 22:08 ABG Base Excess -11.1 mmol/L (-2.0-2.0) L 07/12/16 22:08 Sid Test Pos 07/12/16 22:08 A-a Gradient 90.0 mmHg 07/12/16 22:08 FiO2 28.000 07/12/16 22:08 Blood Gas Comments Shayna well, afh 07/12/16 22:08 Sodium 137 mmol/L (136-145) 07/12/16 19:10 Corrected Sodium 137 mmol/L (136-145) 07/12/16 19:10 Potassium 3.1 mmol/L (3.5-5.1) L 07/12/16 19:10 Chloride 99 mmol/L (98-107) 07/12/16 19:10 Carbon Dioxide 13.8 mmol/L (21-32) L* 07/12/16 19:10 BUN 14 mg/dL (7-18) 07/12/16 19:10 Creatinine 2.08 mg/dL (0.70-1.30) H 07/12/16 19:10 Est GFR (MDRD) Af Amer 48 (>60) L 07/12/16 19:10 Est GFR (MDRD) Non-Af 40 (>60) L 07/12/16 19:10 Glucose 113 mg/dL (65-99) H 07/12/16 19:10 Lactic Acid 6.8 mmol/L (0.4-2.0) H 07/12/16 20:59 Calcium 7.8 mg/dL (8.5-10.1) L 07/12/16 19:10 Corrected Calcium 9.7 mg/dL (8.5-10.1) 07/12/16 19:10 Total Bilirubin 0.60 mg/dL (0.2-1.0) 07/12/16 19:10 AST 36 Units/L (15-37) 07/12/16 19:10 ALT 11 Units/L (12-78) L 07/12/16 19:10 Alkaline Phosphatase 97 Units/L (46-116) 07/12/16 19:10 Creatine Kinase 238 Units/L (39-308) 07/12/16 19:10 CK-MB (CK-2) < 1.0 ng/mL (0-4.0) 07/12/16 19:10 CK/CKMB % Calc 0.4 % (<4) 07/12/16 19:10 Troponin I < 0.02 ng/mL (0-1.5) 07/12/16 19:10 B-Natriuretic Peptide 25.9 pg/mL (0-79) 07/12/16 19:10 Total Protein 5.2 g/dL (6.4-8.2) L 07/12/16 19:10 Albumin 1.6 g/dL (3.4-5.0) L 07/12/16 19:10 Globulin 3.6 g/dL (2.5-4.5) 07/12/16 19:10 Albumin/Globulin Ratio 0.4 Ratio (1.1-2.1) L 07/12/16 19:10 Amylase 90 Units/L (25-115) 07/12/16 19:10 Lipase 266 Units/L (73-393) 07/12/16 19:10 Specimen Type Clean catch urine 07/13/16 01:45 Urine Color Yellow (YELLOW) 07/13/16 01:45 Urine Appearance Clear (CLEAR) 07/13/16 01:45 Urine pH 6.0 (5.0 - 8.0) 07/13/16 01:45 Ur Specific [place] 1.015 (1.000-1.030) 07/13/16 01:45 Urine Protein 3+ (NEGATIVE) 07/13/16 01:45 Urine Glucose (UA) Negative (NEGATIVE) 07/13/16 01:45 Urine Ketones 1+ (NEGATIVE) 07/13/16 01:45 Urine Occult Blood 5+ (NEGATIVE) 07/13/16 01:45 Urine Nitrite Negative (NEGATIVE) 07/13/16 01:45 Urine Bilirubin Negative (NEGATIVE) 07/13/16 01:45 Urine Urobilinogen Normal (NORMAL) 07/13/16 01:45 Ur Leukocyte Esterase Negative (NEGATIVE) 07/13/16 01:45 Urine RBC 0-3 /HPF (NEGATIVE) 07/13/16 01:45 Urine WBC 2-4 /HPF (NEGATIVE) 07/13/16 01:45 Ur Squamous Epith Cells Rare /HPF (NEGATIVE) 07/13/16 01:45 Urine Bacteria 1+ /HPF (NEGATIVE) 07/13/16 01:45 Hyaline Casts Few /LPF (NEGATIVE) 07/13/16 01:45 Granular Casts Few /LPF (NEGATIVE) 07/13/16 01:45 Ur Culture Indicated? No/not indicated 07/13/16 01:45 - XRAY XRAY Interpreted by: Radiologist XRAY Findings: REPORT DISCUSS WITH PATIENT. - EKG Rhythm: ST (EKG NOTED) - Diagnosis Discharge Problem: Sepsis, Pancreatic pseudocyst, Abdominal pain - Discharge Plan Disposition: 02 XFER SHT-TRM HOSP Condition: Stable - Follow ups/Referrals Follow ups/Referrals: Viktor SOLANO [Primary Care Provider] - 3 days - Instructions
[2016-07-12] MEDS ORDERED: TYLENOL 500 MG TAB EXTRA STRENGTH PO ONE (22:53)
[2016-07-12] MEDS ORDERED: TYLENOL 500 MG TAB EXTRA STRENGTH ONE (22:54)
[2016-07-13 00:10] LABS: ABG BASE EXCESS -11.1 mmol/L (-2.0-2.0)
[2016-07-13 00:11] LABS: ABG ALLEN TEST POS; ABG HCO3 12.9 mmol/L (22-26)
[2016-07-13] MEDS ORDERED: LEVAQUIN PREMIX IV 750 MG 750 MG/150 ML BAG IV ONE (00:56)
--- NOTE | 2016-07-13 00:57 | RAD ---
AP abdomen Indication: Right femoral CVL placement Comparison: CT abdomen 07/12/2016 Findings: Left femoral venous catheter appears appropriately positioned. The bowel gas pattern is un remarkable. Impression: Satisfactory left femoral CVL. Reported By:
[2016-07-13 01:30] VITALS: BP 106/57
[2016-07-13] MEDS ORDERED: D5W 250 ML IV 250 ML IV ONE (02:01)
[2016-07-13 02:44] LABS: BILIRUBIN,URINE NEGATIVE (NEGATIVE); BLOOD/HEMOGLOBIN,URINE 5+ (NEGATIVE); GLUCOSE, URINE NEGATIVE (NEGATIVE); KETONES,URINE 1+ (NEGATIVE); LEUKOCYTE ESTERASE ,URINE NEGATIVE (NEGATIVE); NITRITES,URINE NEGATIVE (NEGATIVE); PROTEIN,URINE 3+ (NEGATIVE); UROBILINOGEN,URINE NORMAL (NORMAL)
[2016-07-13 02:56] LABS: APPEARANCE,URINE CLEAR (CLEAR); BACTERIA,URINE 1+ /HPF (NEGATIVE); COLOR,URINE YELLOW (YELLOW); GRANULAR CASTS,URINE FEW /LPF (NEGATIVE); HYALINE CASTS, URINE FEW /LPF (NEGATIVE); RBC,URINE 0-3 /HPF (NEGATIVE); SQUAMOUS EPITHELIAL CELL,UR RARE /HPF (NEGATIVE)
== END 2016-07-13 02:00 | disposition short-term general hospital (02) ==
LOC: ER 18:03
DX: A41.51 Sepsis due to Escherichia coli [E. coli] (principal); K86.3 Pseudocyst of pancreas; R10.84 Generalized abdominal pain
CPT/HCPCS: 36415; 36556; 36600; 51702; 71010; 74000; 74150; 80053; 81001; 82150; 82550; 82553; 82803; 83605; 83690; 83880; 84484; 85025; 87040; 87077; 87186; 93005; 93010; 93041; 96365; 96367; 96374; 96375; 99284; 99291; 99292; A4222; J0696; J1265; J1956; J3370

== ENCOUNTER → 2016-08-07 | Outpatient (CLI) | payer SELFPAY ==
[2016-07-13 01:30] VITALS: BP 106/57
[2016-08-07 14:09] LABS: ALANINE AMINOTRANSFERASE 10 Units/L (12-78); ALBUMIN 2.1 g/dL (3.4-5.0); ALKALINE PHOSPHATASE 96 Units/L (46-116); ASPARTATE AMINO TRANSFERASE 22 Units/L (15-37); BLOOD UREA NITROGEN 8 mg/dL (7-18); CALCIUM 8.6 mg/dL (8.5-10.1); CARBON DIOXIDE 24.2 mmol/L (21-32); CHLORIDE 101 mmol/L (98-107); COR CA(FOR HYPOALB) 10.1 mg/dL (8.5-10.1); COR NA(FOR HYPERGLY) 138 mmol/L (136-145); CREATININE 1.11 mg/dL (0.70-1.30); GLUCOSE 181 mg/dL (65-99); SODIUM 136 mmol/L (136-145); TOTAL PROTEIN 6.8 g/dL (6.4-8.2); eGFR BLACK RACES > 60 (>60); eGFR NON BLACK RACES > 60 (>60)
[2016-08-07 14:24] LABS: BASOPHILS # (AUTO) 0.1 X10^3/uL (0.0-0.1); BASOPHILS % (AUTO) 0.7 % (0.2-1.0); EOSINOPHILS # (AUTO) 0.1 x10^3/uL (0.0-0.2); EOSINOPHILS % (AUTO) 0.6 % (0.9-2.9); HEMOGLOBIN 7.8 g/dL (13.5-18.0); LYMPHOCYTES % (AUTO) 11.2 % (21.0-51.0); MEAN CORPUSCULAR HEMOGLOBIN 24.1 pg (27.0-34.0); MEAN CORPUSCULAR HGB CONC 31.1 g/dL (33.0-35.0); MEAN CORPUSCULAR VOLUME 77.4 fL (80.0-100.0); MEAN PLATELET VOLUME 9.6 fL (7.4-11.0); MONOCYTES # (AUTO) 0.8 x10^3/uL (0.3-0.8); MONOCYTES % (AUTO) 4.5 % (0.0-13.0); NEUTROPHILS # (AUTO) 15.1 x10^3/uL (2.2-4.8); PLATELET COUNT 603 X10^3/uL (150.0-450.0); RED BLOOD COUNT 3.23 X10^6/uL (4.7-6.0); RED CELL DISTRIBUTION WIDTH 20.4 % (11.6-16.5); WHITE BLOOD COUNT 18.3 X10^3/uL (3.6-10.0)
[2016-08-07 14:41] LABS: ANISOCYTOSIS 1+; PLATELET MORPHOLOGY COMMENT NORMAL (NORMAL)
== END | disposition home or self-care (01) | DRG 440 ==
LOC: LAB 13:05
PROVIDERS: ATTEND Internal Medicine Gastroenterology
DX: K85.80 Other acute pancreatitis without necrosis or infection (principal); K80.80 Other cholelithiasis without obstruction
CPT/HCPCS: 36415; 80053; 85025; 85610

== ENCOUNTER 2016-08-13 17:08 | Emergency (ER) | payer SELFPAY ==
[2016-08-13 17:11] VITALS: BP 125/60; BMI 24.5
--- NOTE | 2016-08-13 19:14 | DR.GENAD ---
HPI - PCP Primary Care Physician: [email or web address] - Complaint/Symptoms Chief Complaint Doctors Comments: "pancreas drain has stopped draining" Chief Complaint:: PATIENT MOTHER STATED THAT HIS DRAIN TUBE HAS NOT BEEN DRAINING FRO THE LAST 2-3 DAYS. PATIENT ALSO STATED THAT HE HAS BEEN NAUSEOUS TODAY BUT HAS NOT VOMITED. - Nurses notes reviewed Nurses Notes Review: Yes - Source History Provided: Patient, Family Member - Mode of Arrival Mode of Arrival: Wheelchair - Timing Onset of Chief Complaint: 08/10/16 Came on: Gradually - Severity Severity: None - Associated Signs and Symptoms Associated Signs and Symptoms: none PMH - PMH Past Medical History: Yes Past Medical History: Diabetes, GERD Past Surgical History: Yes Surgical History: Abdominal Surgery - Family History History of Family Medical Conditions: Yes Family Medical History: Diabetes Mellitus, Cancer, [place], Coronary Artery Disease, Heart Failure, Sudden Cardiac , Hypertension - Social History Does patient currently use any type of tobacco product: No Have you used tobacco products in the last 12 months: No Type of Tobacco Use: None Does any household member use tobacco: No Alcohol Use: None Do you use any recreational Drugs:: No Lives With: Family Lives Where: Home - infectious screening In the last 2 months have you had wt loss of >10#?: NO Have you had fever, night sweats or hemotysis?: No Have you traveled outside the country in the last 6 months?: No Isolation: Standard ROS - Review of Systems Constitutional: No Symptoms Reported Eyes: No Symptoms Reported ENTM: No Symptoms Reported Respiratoy: No Symptoms Reported Cardiovascular: No Symptoms Reported Gastrointestinal/Abdominal: No Symptoms Reported, Diarrhea, Other (severe pancreatitis requiring external drain ) Genitourinary: No Symptoms Reported Neurological: No Symptoms Reported Musculoskeletal: No Symptoms Reported Integumentary: No Symptoms Reported Hematologic/Lymphatic: No Symptoms Reported Endocrine: No Symptoms Reported Psychiatric: No Symptoms Reported All Other Systems: Reviewed and Negative PE - Vital Signs Vitals: Temperature 97.8 F Pulse Rate 99 Respiratory Rate 20 Blood Pressure [Left Arm] 106/57 Blood Pressure [Right Arm] 120/54 Blood Pressure 125/60 O2 Sat by Pulse Oximetry 99 - General Limitations: No Limitations General Appearance: Alert, In No Apparent Distress - Head Head Exam: Normal Inspection - Eyes Eye exam: Normal Appearance - ENT ENT Exam: Normal Exam External Ear Exam: Normal External Inspection Throat Exam: Normal Inspection - Neck Neck Exam: Normal Inspection, Full ROM, Trachea Midline - Chest Chest Inspection: Normal Inspection - Respiratory Respiratory Exam: Normal Lung Sounds Bilat - Cardiovascular Cardiovascular Exam: Regular Rate, Normal Rhythm, Normal Heart Sounds - Abdominal Exam Abdominal Exam: Normal Inspection, Normal Bowel Sounds, Soft - Extremities Extremities Exam: Normal Inspection - Back Back Exam: Normal Inspection - Neurologic Neurological Exam: Alert, Oriented X3, CN II-XII Intact - Psychiatric Psychiatric Exam: Depressed - Skin Skin Exam: Warm - Diagnosis Discharge Problem: Pancreatitis - Discharge Plan Disposition: HOME, SELF-CARE Condition: Stable - Follow ups/Referrals Follow ups/Referrals: Viktor SOLANO [Primary Care Provider] - 3 days - Instructions Instructions: Low-Fat Diet for Pancreatitis or Gallbladder Conditions Additional Notes - Additional Notes Additional Notes: Dysfunctional pancreatic drain. Pt is o/w stable. He will go back to [place] and see the interventional radiologist that put the drain in.
== END 2016-08-13 19:59 | disposition home or self-care (01) ==
LOC: ER 17:14
DX: K85.80 Other acute pancreatitis without necrosis or infection (principal)
CPT/HCPCS: 99281; 99282

== ENCOUNTER → 2017-04-19 | Outpatient (CLI) | payer SELFPAY ==
[2017-04-19 12:12] LABS: BASOPHILS # (AUTO) 0.1 X10^3/uL (0.0-0.1); BASOPHILS % (AUTO) 0.5 % (0.2-1.0); EOSINOPHILS # (AUTO) 0.1 x10^3/uL (0.0-0.2); HEMATOCRIT 34.7 % (42.0-54.0); HEMOGLOBIN 11.3 g/dL (13.5-18.0); LYMPHOCYTES # (AUTO) 0.7 X10^3/uL (1.3-2.9); LYMPHOCYTES % (AUTO) 6.7 % (21.0-51.0); MEAN CORPUSCULAR HEMOGLOBIN 24.1 pg (27.0-34.0); MEAN CORPUSCULAR HGB CONC 32.6 g/dL (33.0-35.0); MEAN CORPUSCULAR VOLUME 73.8 fL (80.0-100.0); MEAN PLATELET VOLUME 8.5 fL (7.4-11.0); MONOCYTES # (AUTO) 0.7 x10^3/uL (0.3-0.8); MONOCYTES % (AUTO) 6.5 % (0.0-13.0); NEUTROPHILS # (AUTO) 8.7 x10^3/uL (2.2-4.8); NEUTROPHILS % (AUTO) 85.3 % (42.0-75.0); PLATELET COUNT 259 X10^3/uL (150.0-450.0); RED CELL DISTRIBUTION WIDTH 16.5 % (11.6-16.5); WHITE BLOOD COUNT 10.2 X10^3/uL (3.6-10.0)
[2017-04-19 12:28] LABS: ALANINE AMINOTRANSFERASE 28 Units/L (12-78); ALBUMIN 3.1 g/dL (3.4-5.0); ALKALINE PHOSPHATASE 98 Units/L (46-116); AMYLASE 159 Units/L (25-115); ASPARTATE AMINO TRANSFERASE 29 Units/L (15-37); BLOOD UREA NITROGEN 30 mg/dL (7-18); CALCIUM 9.8 mg/dL (8.5-10.1); CARBON DIOXIDE 26.9 mmol/L (21-32); CHLORIDE 103 mmol/L (98-107); COR CA(FOR HYPOALB) 10.5 mg/dL (8.5-10.1); COR NA(FOR HYPERGLY) 139 mmol/L (136-145); CREATININE 1.48 mg/dL (0.70-1.30); LIPASE 545 Units/L (73-393); SODIUM 139 mmol/L (136-145); eGFR BLACK RACES > 60 (>60); eGFR NON BLACK RACES 58 (>60)
== END ==
LOC: LAB 11:46
PROVIDERS: ATTEND Internal Medicine Gastroenterology
DX: K85.80 Other acute pancreatitis without necrosis or infection (principal)
CPT/HCPCS: 36415; 80053; 82150; 83690; 85025

== ENCOUNTER → 2017-04-26 | Outpatient (CLI) | payer SELFPAY ==
[~2017-04-26] MED LIST: NS 100 ML IV 100 ML IV ONE
--- NOTE | 2017-04-26 11:48 | CT ---
HISTORY: Acute pancreatitis Study: CT abdomen and pelvis with contrast Comparison: 07/01/2016, 07/12/2016 Technique: Multiple axial images of the abdomen and pelvis were obtained with IV contrast. Oral contrast was ad ministered. Dose reduction techniques including Automated Exposure Control (AEC) and adjustment of mA and kV were utilized. Findings: In the depth discrete there is left basilar atelectasis and trace left pleural fluid. There is worsen ed splenomegaly now measuring 14.3 x 14.9 cm in greatest transaxial dimensions. There is congestion o f the splenic veins as well as prominent gastric veins in the left upper quadrant. Findings could be sequela of some degree of splenic vein thrombosis related to pancreatitis. The portal vein appears pa tent. There is no abnormal soft tissue density at the splenic hilum and in the retroperitoneum extend ing down the left pericolic gutter and also along the lateral margin of the left psoas muscle suggest ing sequela of previous recurrent pancreatitis. There is a persistent collection of fluid and gas wit hin the tail of the pancreas now measures 4.6 x 2.4 cm suggesting resolving pseudocyst however the pr esence of gas is concerning for possible infection. The liver appears normal. Interval removal of the biliary stent with no evidence of biliary obstruction or calcified stones. The kidneys and adrenal g lands are unremarkable. There is increased soft tissue density again seen around the pancreas that co uld be related to scarring but correlation with lipase levels is recommended to exclude acute inflamm ation. The pancreatic duct appears normal. Oral contrast reaches the distal colon. The appendix is normal. No ascites is visualized. No evidence of free intraperitoneal air. There are multiple enlarged mesenteric and retroperitoneal lymph nodes again seen, the largest in the left mid abdomen on axial image 45 measures 2.0 x 1.9 cm. The largest left para-aortic lymph node measures 2 x 1.2 cm. There is nonspecific anasarca present, most prominent in the left flank. No aggressive osseous lesion s are identified. The aorta appears normal. The urinary bladder is unremarkable. IMPRESSION: 1. Persistent fluid and gas collection seen at the tail of the pancreas with interval decrease in siz e. The findings suggest resolving pseudocyst however the presence of gas raises the question of infec tion and clinical correlation is recommended to exclude infected pseudocyst/abscess. 2. Increased soft tissue density enhancement around the tail of the pancreas, splenic hilum and exten ding along the inferior pericolic gutter suggesting sequela of previous pancreatitis. Correlation wit h lipase levels recommended to exclude acute inflammation. 3. Worsened splenomegaly which could be secondary to some component of splenic vein thrombosis. The p ortal vein appears patent. 4. Interval removal of biliary stent with no evidence of biliary obstruction. 5. Multiple enlarged mesenteric and retroperitoneal lymph nodes as described of uncertain etiology, p ossibly sequela of previous pancreatitis. Reported By:
== END ==
LOC: RAD 09:08
PROVIDERS: ATTEND Internal Medicine Gastroenterology
DX: K85.80 Other acute pancreatitis without necrosis or infection (principal)
CPT/HCPCS: 74177; A4222